=== PATIENT | male | born 2000 | race Caucasian/White ===

== ENCOUNTER 2025-06-07 08:41 | Emergency (ER) | payer SELFPAY ==
[2025-06-07 08:52] VITALS: BP 125/84; PULSE 82; RESP 16; TEMP 37.1; O2SAT 100
[2025-06-07 09:06] LABS: EDSTREPNEGPOS1 Positive (Negative)
--- NOTE | 2025-06-07 09:14 | ED.URI ---
HPI - URI/Sore Throat General Chief Complaint: Upper Respiratory Infection Stated Complaint: SORE THROAT/SWELLING Time Seen by Provider: 06/07/25 09:05 Source: patient and RN notes reviewed Mode of arrival: ambulatory Limitations: no limitations History of Present Illness HPI Narrative: 25-year-old male presents Express Care complaining of sore throat and throat swelling for approximally 1 week. Patient reports some minor runny nose as well. Patient thought a sore throat is getting better over the weekend they said last night he felt like his systems got worse having worsening swelling and pain. Patient reports pain with swallowing however he states he is able to swallow without difficulty. Patient denies any excessive drooling, difficulty clearing secretions, or any breathing problems. Patient has not taken anything [id number] to help with symptoms. Patient any fevers body aches, chills, nausea vomiting, diarrhea, congestion, ear pain Memory other symptoms. Related Data Allergies Allergy/AdvReac Type Severity Reaction Status Date / Time bacitracin Allergy Intermediate Rash Verified 06/07/25 08:47 neomycin Allergy Intermediate Rash Verified 06/07/25 08:47 polymyxin B Allergy Intermediate Rash Verified 06/07/25 08:47 Review of Systems Review of Systems: CONSTITUTIONAL: Denies fever, chills, or sweats. EYES: Denies visual changes, redness, or discharge. ENT: Denies rhinorrhea, congestion, trismus, difficulty clearing secretions, voice hoarseness, difficulty swallowing, or otalgia. Positive for sore throat and throat swelling. CARDIOVASCULAR: Denies chest pain, palpitations, or edema. RESPIRATORY: Denies cough or dyspnea. GASTROINTESTINAL: Denies abdominal pain, nausea, vomiting, or diarrhea. GENITOURINARY: Denies dysuria or hematuria. SKIN: Denies rash or itching. MUSCULOSKELETAL: Denies back pain, joint pain, or myalgia. NEUROLOGIC: Denies headache, numbness, or weakness. PSYCHIATRIC: Denies anxiety or depression. All other systems reviewed are negative, except as documented in HPI. PMFSH Comments At the time of my signature, I reviewed and agree with the nursing past medical, surgical, social, and family history. There is no relevant family history pertinent to the patient complaint. Exam Narrative: GENERAL: This is a well-nourished, well-developed adult, in no apparent distress. They are non ill-appearing, nontoxic appearing. HEAD: normocephalic, atraumatic. EYES: Sclera clear/white. Conjunctiva normal. Vision is grossly intact. Extraocular movements intact EARS: External ears normal, auditory canals clear and without drainage, TMs normal without perforation. Hearing grossly intact. NOSE: External nose normal with no obvious nasal discharge, nasal turbinates without redness, no rhinorrhea. THROAT: Mucous membranes moist, posterior pharynx erythematous. Uvula midline. Tonsils erythematous 4+. No trismus. NECK: Neck supple, tender with mild cervical lymphadenopathy, no masses or thyromegaly. CARDIOVASCULAR: Regular rate and rhythm without murmurs, gallops, or rubs. RESPIRATORY: Clear to auscultation. Breath sounds equal bilaterally. No wheezes, rales, or rhonchi. SKIN: warm, Dry, intact with no suspicious lesions or rash, good texture and turgor. NEURO: awake, alert, and oriented to person, place and time. There were no obvious focal neurologic abnormalities. EXTREMITIES: No joint tenderness, effusion, or edema noted. Course Course Emergency Course: Portions of this record may have been created with voice recognition software Level of Care: Express Care Visit Vital Signs Vital signs: Vital Signs Temperature 98.8 F 06/07/25 08:52 Pulse Rate 82 06/07/25 08:52 Respiratory Rate 16 06/07/25 08:52 Blood Pressure 125/84 06/07/25 08:52 Pulse Oximetry 100 06/07/25 08:52 Temperature 98.8 F 06/07/25 08:52 Pulse Rate 82 06/07/25 08:52 Respiratory Rate 16 06/07/25 08:52 Blood Pressure 125/84 06/07/25 08:52 Pulse Oximetry 100 06/07/25 08:52 Reviewed MDM - URI/Sore Throat MDM Narrative Medical decision making narrative: Rapid strep is positive. No trismus, uvula midline, no difficulty clearing secretions. No dysphagia. Given the extent of tonsils swelling patient given a dose of dexamethasone. Will Prescribe amoxicillin. Strict ER precautions discussed with patient especially if the swelling gets worse, develops difficulty breathing, difficulty swelling, difficulty clearing his secretions, lock jaw, or any serious concerns. Discussed physical exam findings. Advised supportive measures and signs/symptoms to go to the ER. Pt is appropriate for outpt treatment and f/u. Differential Diagnosis Differential diagnosis: Likely viral infection, pharyngitis and other (Tonsillitis, peritonsillar abscess) Lab Data Attestation: I reviewed the patient's lab results. Labs: Lab Results 06/07/25 Range/Units 09:04 POC Grp A Strep Screen Positive (Negative) Critical Care Time Critical Care Time Critical Care Time: No Discharge Plan Discharge Clinical Impression: Pharyngitis Patient Disposition: Home Condition: Stable Instructions: Antibiotic Form, Strep Throat (ED) Additional Instructions: You tested positive for strep throat. ?Please take the amoxicillin as prescribed until gone. ?You will be contagious for 24 hours after starting the medication. ?After 24 hours on antibiotics throw tooth brush away and start using a new one. Wash your sheets and cup/water bottle that is used daily. Do not share drinks. Take Tylenol or Ibuprofen for pain or fever, if able. ?Rest and stay hydrated. ?Follow up with your PCP in 3 to 5 days if symptoms are not improving. ?Go to the ER immediately if you develop worsening symptoms such as shortness of breath, worsening throat swelling, excessive drooling, unable to swallow, or Difficulty swallowing, or any serious concerns. ? Patient Language: Ken[place] Prescriptions: New amoxicillin 500 mg tablet 500 mg PO Q12H 10 Days Qty: 20 0RF Follow-up/Referrals: PHYSICIAN,PAIRING MACHINE OPERATOR [Primary Care Provider, Internal Medicine] Time of Disposition: 09:11
[2025-06-07] MEDS: dexAMETHasone SOD PHOS INJ 10 MG/ML 1 ML VIAL IM (09:18)
== END 2025-06-07 09:28 | disposition home or self-care (01) ==
DX: J02.9 Acute pharyngitis, unspecified (principal)
CPT/HCPCS: 87880; 96372; 99203; G0463; J1100